=== PATIENT | female | born 1985 | race Hispanic/Latino ===

== ENCOUNTER → 2025-05-22 | Day surgery (SDC) | payer OTHER ==
[~2025-05-22] MED LIST: HYOSCYAMINE SULFATE 0.5 MG/ML INJ ONE; LIDOCAINE HCL 2% LOCAL INJ 5 ML SDV VIAL INJ ONE; LINZESS290 MCG; PANTOPRAZOLE SO40 MG PO; PROPOFOL IV EMULSION 10 MG/ML 20 ML VIAL ONE
[2025-05-22] MEDS: LACTATED RINGER'S 1,000 ML ONE (08:03)
[2025-05-22 09:42] VITALS: TEMP 97
[2025-05-22 10:10] VITALS: BP 114/71; PULSE 70; RESP 14; O2SAT 100
[2025-05-25 07:14] LABS: ENDOMYSIAL ANTIBODIES, IGA Negative (Negative)
[2025-05-25 07:25] LABS: TISSUE TRANSGLUTAMINASE IGA AB <2 U/mL (0-3)
== END | disposition home or self-care (01) ==
LOC: EDBD 05-21 09:00 → OR 07:16
PROVIDERS: ATTEND Internal Medicine Gastroenterology
DX: K29.00 Acute gastritis without bleeding (principal); K29.50 Unspecified chronic gastritis without bleeding; K29.60 Other gastritis without bleeding; B96.81 Helicobacter pylori [H. pylori] as the cause of diseases classified elsewhere; K20.90 Esophagitis, unspecified without bleeding; K21.9 Gastro-esophageal reflux disease without esophagitis; K59.04 Chronic idiopathic constipation; K64.8 Other hemorrhoids; Z88.0 Allergy status to penicillin; Z68.39 Body mass index [BMI] 39.0-39.9, adult; Z71.3 Dietary counseling and surveillance; Z80.0 Family history of malignant neoplasm of digestive organs
CPT/HCPCS: 43239; 45378; 81025; 82784; 83516; 86256; J1980; J2003; J2470; J2704; J7121